=== PATIENT | female | born 1950 | race Caucasian/White ===

== ENCOUNTER 2017-03-30 10:32 | Day surgery (SDC) | payer BC ==
[~2017-03-30 10:32] MED LIST: Dexamethasone IV* 4 MG/ML 1 ML (4 MG) IV SLOW PU ONE
[2017-03-30] MEDS ORDERED: Buffered Lidocaine 0.9% SYRIN* 5 ML/SYR SYRINGE ONE (10:50)
[2017-03-30] MEDS ORDERED: Dexamethasone IV* 4 MG/ML 1 ML (4 MG) ONE (10:50)
[2017-03-30] MEDS ORDERED: ceFAZolin 2 GM PREMIX(*) 2 GM/50 ML BAG IVPB ONE (10:50)
[2017-03-30] MEDS ORDERED: fentaNYL* 50 MCG/ML 2 ML VIAL (100 MCG VIAL) ONE (11:11)
[2017-03-30] MEDS ORDERED: Midazolam* 1 MG/ML 5 ML VIAL (5 MG) ONE (11:11)
[2017-03-30] MEDS ORDERED: Ketorolac INJ* 30 MG/ML 1 ML VIAL ONE (11:12)
[2017-03-30] MEDS ORDERED: Ondansetron INJ* 2 MG/ML VIAL ONE (11:12)
[2017-03-30] MEDS ORDERED: Propofol* 10 MG/ML 20 ML BTL IV PUSH ONE (11:12)
[2017-03-30] MEDS ORDERED: Desflurane* 240 ML INH ONE (11:23)
[2017-03-30] MEDS ORDERED: oxyCODONE/Acetamin 5/325 MG* TAB PO PRN (11:54)
[2017-03-30] MEDS ORDERED: Ondansetron INJ* 2 MG/ML VIAL IV PRN (11:54)
[2017-03-30] MEDS ORDERED: Lidocaine 1% MPF wEPI 200,000* 30 ML SDV ONE (12:02)
[2017-03-30] MEDS ORDERED: Methylene Blue 1% (ANTIDOTE)* 10 MG/ML 1 ML SDV VIAL IVPB ONE (12:02)
[2017-03-30] MEDS ORDERED: Bupivacaine 0.25% W/EPI* 50 ML VIAL ONE (12:02)
[2017-03-30] MEDS ORDERED: Mineral Oil Sterile, TOPICAL* 25 ML BTL ONE (12:07)
[2017-03-30 15:33] VITALS: BP 154/66
== END 2017-03-30 15:35 | disposition home or self-care (01) ==
LOC: OR 10:32
PROVIDERS: ATTEND Plastic Surgery
DX: C44.629 Squamous cell carcinoma of skin of left upper limb, including shoulder (principal); D64.9 Anemia, unspecified
CPT/HCPCS: 88305; 88329; A9270-GY; J0690; J1100; J1885; J2001; J2250; J2405; J2704; J3010

== ENCOUNTER → 2019-04-12 08:53 | Day surgery (SDC) | payer BC ==
[~2019-04-12 08:53] MED LIST changes: +Buffered Lidocaine 1% SYRIN* 1 ML/SYRINGE INTRADERM ONE; -Dexamethasone IV* 4 MG/ML 1 ML (4 MG) IV SLOW PU ONE; +Dexamethasone TAB* 4 MG ONE; +Dexamethasone TAB* 4 MG PO ONE; +DiMENhydriNATE IV* 50 MG/ML VIAL IV PUSH PRN; +Gelfoam 12-7 ADSORBABL SPONGE* 1 EA SPONGE ONE; +KETAMINE HCL* 50 MG/ML 10 ML VIAL ONE; +Ketorolac INJ* 30 MG/ML 1 ML VIAL ONE; +Lactated Ringers 1000 ML Bag* 1,000 ML IV SCH; +Lidocaine 2% EPI 1:200000 MPF*10-20 ML VIAL ONE; +Lidocaine 2% PF * 5 ML VIAL ONE; +Midazolam* 1 MG/ML 5 ML VIAL (5 MG) ONE; +Morphine 4 MG/ML VIAL (1 ml) 4 MG/ML VIAL IV PRN; +Naloxone* 0.4 MG/ML 1 ML VIAL IV PRN; +Ondansetron ODT TAB* 4 MG ONE; +Ondansetron TAB* 4 MG PO ONE; +Oxymetazoline 0.05% NASAL SPR* 15 ML BTL ONE; +PROCHLORPERAZINE INJ 5 MG/ML 2 ML VIAL IV PRN; +Propofol* 10 MG/ML 20 ML BTL ONE; +Scopolamine 1.5 mg* PATCH TRANSDERM PRN; +Scopolamine PATCH Remove* 1 NOTE MISC PATCH OFF ONE; +fentaNYL* 50 MCG/ML 2 ML VIAL (100 MCG VIAL) IV PRN; +fentaNYL* 50 MCG/ML 2 ML VIAL (100 MCG VIAL) ONE; +oxyCODONE/Acetamin 5/325 MG* TAB ONE; +oxyCODONE/Acetamin 5/325 MG* TAB PO PRN
--- NOTE | 2019-04-12 13:26 | OP ---
OPERATIVE REPORT: DATE OF OPERATION: 04/12/19 DATE OF : 52 SURGEON: Ravi Wynn MD PRE-OP DIAGNOSES: Chronic eustachian tube dysfunction, chronic serous effusion of right ear, nasal c ongestion and rhinorrhea with hypertrophied turbinates. POST-OP DIAGNOSES: Chronic eustachian tube dysfunction, chronic serous effusion of right ear, nasal congestion and rhinorrhea with hypertrophied turbinates. OPERATIVE PROCEDURE: Myringotomy, placement of right ear tympanostomy tube T-tube, eustachian tube d ilatation, and submucosal resection of right inferior turbinate. BRIEF HISTORY: This is a 68-year-old with recurrent otitis media, 5 previous tympanostomy tubes with persistent effusion. The patient elected for surgical management of right T-tube, eustachian tube d ilatation and submucosal resection of turbinate. DESCRIPTION OF PROCEDURE: The patient was taken to the operating room, general anesthetic was given. The patient was intubated with LMA. Right ear was examined. Right ear marginotomy was created. Th e effusion was removed and sent for beta transferrin to rule out CSF. A T-tube was then placed. We then turned our attention to the nose. Nose was decongested with Afrin-placed pledgets. A 30- degre e telescope was utilized. Eustachian tube area was identified. A current balloon dilatation system was utilized. This was introduced into the eustachian tube at the correct location and in the correc t direction. Dilated 12 bar pressure for 2 minutes. Withdrawn and reexamined. There was no bleedin g or other evidence of any mucosal injury. With this in mind, we turned our attention to partial res ection of the inferior turbinate. Posterior 1/3 of the turbinate was cauterized with electrocautery and resected to submucosal plane. Once this was done and adequate hemostasis obtained, the patient w as awakened, extubated and sent to recovery room in stable condition. Instrument and sponge counts w ere correct. Blood loss was minimal. [id number]/[facility] #: [id number]
[2019-04-12 14:12] VITALS: BP 141/68
== END | disposition home or self-care (01) ==
LOC: OR 08:53
PROVIDERS: ATTEND Otolaryngology
DX: H65.21 Chronic serous otitis media, right ear (principal); J34.3 Hypertrophy of nasal turbinates; H69.81 Other specified disorders of Eustachian tube, right ear; J31.0 Chronic rhinitis
CPT/HCPCS: 86335; A9270-GY; J1885; J2250; J2704; J3010; J8540

== ENCOUNTER 2020-04-12 08:02 | Inpatient (IN) ==
[2020-04-12] MEDS ORDERED: NS 0.9% 1000 ml BAG 1,000 ML IV ONE (08:09)
[2020-04-12] MEDS ORDERED: Ondansetron 4 mg VIAL 2 MG/ML 2 ml VIAL IV ONE (08:18)
[2020-04-12] MEDS ORDERED: Morphine 4 MG/ML VIAL (1 ml) IV ONE (08:18)
[2020-04-12 08:51] LABS: ABS Eosinophils 0.1 10^3/ul (0-0.6); ABS Lymphocytes 0.4 10^3/ul (1.0-4.8); ABS Monocytes 0.4 10^3/ul (0-0.8); Eosinophil % 2.1 %; Hematocrit 30 % (35-47); Lymphocyte % 6.3 %; Mean Corpuscular HGB Conc 33 g/dL (31-36); Mean Corpuscular Hemoglobin 25 pg (27-31); Mean Corpuscular Volume 77 fL (80-97); Mean Platelet Volume 7.7 fL (7.4-10.4); Platelet Count 98 10^3/uL (150-450); Red Blood Count 3.93 10^6 /uL (3.70-4.87); Red Cell Distribution Width 18 % (10-15); White Blood Count 6.1 10^3/uL (3.5-10.8)
[2020-04-12 09:08] LABS: Albumin 3.9 g/dL (3.2-5.2); Albumin/Globulin Ratio 1.6 (1-3); BUN/Creatinine Ratio 23.2 (8-20); C Reactive Protein 6.26 mg/L (<8.01); Calcium 8.9 mg/dL (8.6-10.3); EGFR African American 130.3 (>60); EGFR Non-African American 107.7 (>60); Globulin 2.5 g/dL (2-4); Potassium 3.4 mmol/L (3.5-5.0); Total Bilirubin 1.1 mg/dL (0.2-1.0); Total Protein 6.4 g/dL (6.4-8.9)
[2020-04-12 10:12] LABS: Urine Appearance Clear; Urine Bilirubin Negative (Negative); Urine Blood Negative (Negative); Urine Color Yellow; Urine Glucose Negative (Negative); Urine Ketones Negative (Negative); Urine Nitrite Negative (Negative); Urine Protein Negative (Negative); Urine Specific Gravity 1.014 (1.010-1.030); Urine Urobilinogen Negative (Negative)
[2020-04-12] MEDS: Ondansetron 4 mg VIAL 2 MG/ML 2 ml VIAL IV PRN (13:27)
[2020-04-12] MEDS: D5W NS 0.9% 20Meq KCL 1000 ml 1,000 ML IV SCH (14:47)
[2020-04-13] MEDS: Ondansetron 4 mg VIAL 2 MG/ML 2 ml VIAL IV PRN (01:26)
[2020-04-13] MEDS: D5W NS 0.9% 20Meq KCL 1000 ml 1,000 ML IV SCH ×2 (02:37→19:30)
[2020-04-13 04:45] LABS: ABS Eosinophils 0.2 10^3/ul (0-0.6); ABS Lymphocytes 0.3 10^3/ul (1.0-4.8); ABS Monocytes 0.4 10^3/ul (0-0.8); Eosinophil % 2.3 %; Hematocrit 29 % (35-47); Hemoglobin 9.6 g/dL (12.0-16.0); Lymphocyte % 5.1 %; Mean Corpuscular HGB Conc 33 g/dL (31-36); Mean Corpuscular Hemoglobin 26 pg (27-31); Mean Corpuscular Volume 78 fL (80-97); Mean Platelet Volume 7.8 fL (7.4-10.4); Nucleated Red Blood Cells % 0.1; Platelet Count 89 10^3/uL (150-450); Red Blood Count 3.74 10^6 /uL (3.70-4.87); Red Cell Distribution Width 18 % (10-15); White Blood Count 6.7 10^3/uL (3.5-10.8)
[2020-04-13 04:56] LABS: BUN/Creatinine Ratio 21.2 (8-20); Calcium 8.3 mg/dL (8.6-10.3); EGFR African American 141.9 (>60); EGFR Non-African American 117.3 (>60); Magnesium 1.5 mg/dL (1.9-2.7); Potassium 3.4 mmol/L (3.5-5.0)
[2020-04-13] MEDS ORDERED: Magnesium Sulfate 2 gm BAG 2 GM/50 ML BAG IVPB ONE (10:15)
[2020-04-13] MEDS ORDERED: KCL 10 MEQ/100 ML IVPREMIX 100 ml BAG IV ONE (10:16)
[2020-04-13] MEDS ORDERED: Pantoprazole VIAL 40 MG VIAL IV SCH (11:00)
[2020-04-14] MEDS: D5W NS 0.9% 20Meq KCL 1000 ml 1,000 ML IV SCH (05:49)
[2020-04-14 08:07] VITALS: BP 141/59
== END 2020-04-14 11:52 | disposition home or self-care (01) | DRG 247 ==
LOC: ED 08:02 → SSU 08:02 → OBSVTOIN 12:30 → INTOOBSV 12:30 → SSU 13:32
PROVIDERS: ADMIT Surgery; ATTEND Surgery

== ENCOUNTER 2021-01-03 17:55 | Inpatient (IN) ==
[2021-01-03] MEDS ORDERED: NS 0.9% IV ONE (18:45)
[2021-01-03 18:48] LABS: ABS Lymphocytes 0.4 10^3/ul (1.0-4.8); ABS Monocytes 0.7 10^3/ul (0-0.8); ABS Neutrophils 5.5 10^3/ul (1.5-7.7); Eosinophil % 0.7 %; Hematocrit 25 % (35-47); Hemoglobin 8.9 g/dL (12.0-16.0); Lymphocyte % 5.9 %; Mean Corpuscular HGB Conc 36 g/dL (31-36); Mean Corpuscular Hemoglobin 33 pg (27-31); Mean Corpuscular Volume 93 fL (80-97); Mean Platelet Volume 7.8 fL (7.4-10.4); Platelet Count 102 10^3/uL (150-450); Red Blood Count 2.69 10^6 /uL (3.70-4.87); Red Cell Distribution Width 14 % (10-15); White Blood Count 6.6 10^3/uL (3.5-10.8)
[2021-01-03 19:00] LABS: Activated Partial Thrombo Time 26.5 seconds (26.0-38.0); INR 1.16 (0.82-1.09)
[2021-01-03 19:11] LABS: Albumin 3.5 g/dL (3.2-5.2); Anion Gap 8 mmol/L (2-11); CO2 Carbon Dioxide 24 mmol/L (22-32); Calcium 9.3 mg/dL (8.6-10.3); Chloride 102 mmol/L (101-111); Sodium 134 mmol/L (135-145)
[2021-01-03 19:17] LABS: ALT 11 U/L (7-52); AST 15 U/L (13-39); Albumin/Globulin Ratio 1.2 (1-3); Alkaline Phosphatase 87 U/L (34-104); BUN/Creatinine Ratio 22.2 (8-20); Blood Urea Nitrogen 32 mg/dL (6-24); C Reactive Protein 99.99 mg/L (<8.01); EGFR African American 43.7 (>60); EGFR Non-African American 36.1 (>60); Globulin 2.9 g/dL (2-4); Glucose 97 mg/dL (70-100); Total Protein 6.4 g/dL (6.4-8.9)
[2021-01-03 19:20] LABS: Troponin I 0.03 ng/mL (<0.03)
[2021-01-03] MEDS ORDERED: Azithromycin 500 mg/250 ml NS 500 MG/250 ML BAG IVPB ONE (19:24)
[2021-01-03] MEDS ORDERED: cefTRIAXone 1 gm/50 mL NS BAG 1 GM/50 ML BAG IV ONE (19:24)
[2021-01-03] MEDS ORDERED: Lorazepam PYXIS KEY PRN (23:27)
[2021-01-03] MEDS ORDERED: LORazepam 2 mg VIAL 1 ml IV PUSH ONE (23:28)
[2021-01-04] MEDS ORDERED: oxyCODONE/Acetamin 5/325 mg TAB PO ONE (01:56)
[2021-01-04 02:44] LABS: Total Protein 5.3 g/dL (6.4-8.9)
[2021-01-04 02:47] LABS: Troponin I 0.02 ng/mL (<0.03)
[2021-01-04 02:53] LABS: Body Fluid Source Pleural Fluid
[2021-01-04] MEDS ORDERED: Ondansetron ODT 4 mg TAB 4 MG TAB PO PRN (05:12)
[2021-01-04 05:33] LABS: Body Fluid Mono 4 %; Body Fluid NRBC 1
[2021-01-04 05:58] LABS: ABS Lymphocytes 0.2 10^3/ul (1.0-4.8); ABS Monocytes 0.5 10^3/ul (0-0.8); ABS Neutrophils 3.4 10^3/ul (1.5-7.7); Eosinophil % 1.1 %; Hematocrit 21 % (35-47); Hemoglobin 7.5 g/dL (12.0-16.0); Lymphocyte % 5.8 %; Mean Corpuscular HGB Conc 36 g/dL (31-36); Mean Corpuscular Hemoglobin 34 pg (27-31); Mean Corpuscular Volume 95 fL (80-97); Mean Platelet Volume 7.9 fL (7.4-10.4); Platelet Count 62 10^3/uL (150-450); Red Blood Count 2.23 10^6 /uL (3.70-4.87); Red Cell Distribution Width 14 % (10-15); White Blood Count 4.2 10^3/uL (3.5-10.8)
[2021-01-04 06:05] LABS: BUN/Creatinine Ratio 22.7 (8-20); Calcium 8.3 mg/dL (8.6-10.3); EGFR Non-African American 41.3 (>60); Potassium 3.9 mmol/L (3.5-5.0)
[2021-01-04] MEDS: CMCS:Omeprazole 20 mg CAP (NF) PO SCH (08:02)
[2021-01-04] MEDS: Cholecalciferol (VIT D3) 400 units TAB PO SCH ×3 (08:02→20:54)
[2021-01-04] MEDS ORDERED: Heparin 5000 UNITS/ML 1 mL VIAL SUBCUT SCH (09:00)
[2021-01-04] MEDS ORDERED: cefTRIAXone 1 gm/50 mL NS BAG 1 GM/50 ML BAG IVPB SCH (20:30)
[2021-01-04] MEDS ORDERED: Azithromycin 500 mg/250 ml NS 500 MG/250 ML BAG IVPB SCH (21:00)
[2021-01-04] MEDS ORDERED: Enoxaparin 40 MG/0.4 ML SYR SUBCUT SCH (21:00)
[2021-01-04] MEDS: oxyCODONE/Acetamin 5/325 mg TAB PO PRN (21:02)
[2021-01-05] MEDS: oxyCODONE/Acetamin 5/325 mg TAB PO PRN (07:26)
[2021-01-05] MEDS ORDERED: Enoxaparin 40 MG/0.4 ML SYR SUBCUT SCH (09:00)
[2021-01-05] MEDS: Cholecalciferol (VIT D3) 400 units TAB PO SCH ×2 (09:35→13:36)
[2021-01-05] MEDS: CMCS:Omeprazole 20 mg CAP (NF) PO SCH (09:35)
[2021-01-05 09:48] LABS: Hematocrit 24 % (35-47); Hemoglobin 8.4 g/dL (12.0-16.0); Mean Corpuscular HGB Conc 36 g/dL (31-36); Mean Corpuscular Hemoglobin 34 pg (27-31); Mean Corpuscular Volume 94 fL (80-97); Mean Platelet Volume 7.8 fL (7.4-10.4); Platelet Count 98 10^3/uL (150-450); Red Blood Count 2.51 10^6 /uL (3.70-4.87); Red Cell Distribution Width 14 % (10-15); White Blood Count 5.1 10^3/uL (3.5-10.8)
[2021-01-05 11:29] VITALS: BP 112/48
[2021-01-05 12:13] LABS: Urine Appearance Cloudy; Urine Bilirubin Negative (Negative); Urine Blood Negative (Negative); Urine Color Yellow; Urine Glucose Negative (Negative); Urine Ketones Negative (Negative); Urine Nitrite Negative (Negative); Urine Protein Negative (Negative); Urine Specific Gravity 1.015 (1.010-1.030); Urine Urobilinogen Negative (Negative)
[2021-01-05 13:39] LABS: Urine White Blood Cell 1+(6-10/hpf) (Absent)
[2021-01-07 13:39] LABS: Fluid Type, Glucose PLEURAL; Glucose, BF 91 mg/dL
[2021-01-07 13:43] LABS: Lactate Dehydrogenase, BF 243 U/L
[2021-01-07 14:07] LABS: Albumin, BF 2.3 g/dL; Fluid Type, Albumin PLEURAL
[2021-01-07 14:13] LABS: Fluid Type, Protein, Total PLEURAL
== END 2021-01-05 15:30 | disposition home or self-care (01) | DRG 143 ==
LOC: ED 17:55 → MED 20:57
PROVIDERS: ADMIT Internal Medicine; ATTEND Internal Medicine

== ENCOUNTER 2021-01-27 23:21 | Observation (INO) ==
[2021-01-28] MEDS ORDERED: Pantoprazole VIAL 40 MG VIAL IV ONE (00:18)
[2021-01-28] MEDS ORDERED: Ondansetron 4 mg VIAL 2 MG/ML 2 ml VIAL IV ONE (00:18)
[2021-01-28 01:24] LABS: Venous Bicarbonate HCO3 27.7 mmol/L (24-28)
[2021-01-28 01:27] LABS: ABS Eosinophils 0.1 10^3/ul (0-0.6); ABS Lymphocytes 0.2 10^3/ul (1.0-4.8); ABS Monocytes 0.4 10^3/ul (0-0.8); ABS Neutrophils 4.6 10^3/ul (1.5-7.7); Eosinophil % 1.7 %; Hematocrit 21 % (35-47); Hemoglobin 7.1 g/dL (12.0-16.0); Lymphocyte % 3.1 %; Mean Corpuscular HGB Conc 34 g/dL (31-36); Mean Corpuscular Hemoglobin 33 pg (27-31); Mean Corpuscular Volume 97 fL (80-97); Mean Platelet Volume 7.7 fL (7.4-10.4); Platelet Count 94 10^3/uL (150-450); Red Blood Count 2.18 10^6 /uL (3.70-4.87); Red Cell Distribution Width 16 % (10-15); White Blood Count 5.3 10^3/uL (3.5-10.8)
[2021-01-28 01:33] LABS: INR 1.16 (0.82-1.09)
[2021-01-28 01:50] LABS: Albumin 3.3 g/dL (3.2-5.2); Albumin/Globulin Ratio 1.3 (1-3); BUN/Creatinine Ratio 27.3 (8-20); C Reactive Protein 38.57 mg/L (<8.01); Calcium 9.1 mg/dL (8.6-10.3); EGFR African American 48.3 (>60); EGFR Non-African American 39.9 (>60); Globulin 2.5 g/dL (2-4); Potassium 4.5 mmol/L (3.5-5.0); Total Bilirubin 0.5 mg/dL (0.2-1.0); Total Protein 5.8 g/dL (6.4-8.9)
[2021-01-28 01:51] LABS: Troponin I 0.01 ng/mL (<0.03)
[2021-01-28] MEDS ORDERED: oxyCODONE/Acetamin 5/325 mg TAB PO ONE (02:59)
[2021-01-28] MEDS ORDERED: Ondansetron 4 mg VIAL 2 MG/ML 2 ml VIAL IV PRN (04:00)
[2021-01-28] MEDS ORDERED: Prochlorperazine 5 mg/ml 2 ml VIAL (10 mg) IV PRN (04:00)
[2021-01-28] MEDS ORDERED: NS 0.9% 1000 ml BAG 1,000 ML IV SCH (04:00)
[2021-01-28 07:54] LABS: INR 1.18 (0.82-1.09)
[2021-01-28 07:59] LABS: ABS Eosinophils 0.1 10^3/ul (0-0.6); ABS Lymphocytes 0.2 10^3/ul (1.0-4.8); ABS Monocytes 0.4 10^3/ul (0-0.8); ABS Neutrophils 4.1 10^3/ul (1.5-7.7); Eosinophil % 2.2 %; Hematocrit 21 % (35-47); Lymphocyte % 4.1 %; Mean Corpuscular HGB Conc 34 g/dL (31-36); Mean Corpuscular Hemoglobin 33 pg (27-31); Mean Corpuscular Volume 97 fL (80-97); Mean Platelet Volume 7.3 fL (7.4-10.4); Platelet Count 83 10^3/uL (150-450); Red Blood Count 2.13 10^6 /uL (3.70-4.87); Red Cell Distribution Width 16 % (10-15); White Blood Count 4.7 10^3/uL (3.5-10.8)
[2021-01-28 08:04] LABS: Calcium 9.1 mg/dL (8.6-10.3); EGFR African American 48.7 (>60); EGFR Non-African American 40.3 (>60); Potassium 4.7 mmol/L (3.5-5.0)
[2021-01-28] MEDS: CMC: Omeprazole 20 mg CAP (NF) PO SCH (09:00)
[2021-01-28] MEDS: oxyCODONE/Acetamin 5/325 mg TAB PO PRN ×2 (09:01→17:20)
[2021-01-28] MEDS: Heparin 5000 UNITS/ML 1 mL VIAL SUBCUT SCH ×3 (09:01→20:01)
[2021-01-28] MEDS: CMCS: Saliva Substitute (NF) 1 SPRAY BTL MT PRN ×2 (12:46→17:20)
[2021-01-28 13:24] LABS: Hematocrit 20 % (35-47)
[2021-01-29] MEDS: oxyCODONE/Acetamin 5/325 mg TAB PO PRN ×3 (01:44→14:35)
[2021-01-29] MEDS: Heparin 5000 UNITS/ML 1 mL VIAL SUBCUT SCH ×2 (05:28→14:36)
[2021-01-29] MEDS: CMC: Omeprazole 20 mg CAP (NF) PO SCH (07:39)
[2021-01-29 16:28] VITALS: BP 109/45
== END 2021-01-29 16:20 | disposition home or self-care (01) ==
LOC: ED 23:21 → MED 23:21
PROVIDERS: ADMIT Internal Medicine; ATTEND Internal Medicine